=== PATIENT | male | born 1995 | race Caucasian/White ===

== ENCOUNTER 2022-11-12 17:54 | Emergency (ER) | payer OTHER, SELFPAY ==
--- NOTE | ~2022-11-12 | XR_ITS ---
EXAMINATION: XR chest 2V DATE: 11/12/2022 23:33 INDICATION: Dysphagia. TECHNIQUE: Frontal and lateral views of the chest were obtained. COMPARISON: None. FINDINGS: The chest demonstrates clear lungs without pneumonia, pleural effusion, or pneumothorax. Th e heart size is normal. IMPRESSION: 1. No acute cardiopulmonary disease. Reviewed, dictated and finalized at location A. [facility]
[2022-11-12 18:36] VITALS: BP 153/87; PULSE 110; RESP 18; TEMP 37; O2SAT 100
--- NOTE | 2022-11-12 23:30 | ED.GENADULT ---
HPI - General Adult General Chief complaint: Neuro Symptoms/Deficit Stated complaint: i feel im choking Time Seen by Provider: 11/12/22 22:49 History of Present Illness HPI narrative: Patient is a 27-year-old male who presents ER with discomfort in his throat. Reports he was eating a [place] pena when it got stuck. He is coughing and retching. Eventually he improved and he is able to drink water. He still has discomfort in his neck. He does not believe that anything went into his airway. Reports he did have a marijuana edible tonight which may have heightened his anxiety because he was quite nervous during the episode. He has not had esophageal obstruction previously. He has not had an EGD. Does not report persistent acid reflux. Reports he had pizza earlier in the day. Related Data Allergies Allergy/AdvReac Type Severity Reaction Status Date / Time No Known Allergies Allergy Verified 11/12/22 18:41 Review of Systems Review of Systems: All systems reviewed & are unremarkable except as noted in HPI and below Constitutional: Constitutional: Denies chills, Denies fatigue and Denies fever(s) ENT: Reports dysphagia, Denies nasal congestion and Denies sore throat Cardiovascular: Cardiovascular: Denies chest pain, Denies rapid heart rate and Denies radiating jaw, neck or arm pain Respiratory: Respiratory: Denies cough and Denies dyspnea Gastrointestinal: Gastrointestinal: Denies abdominal pain, Reports nausea and Reports vomiting PMFSH Past Medical History Medical History (Updated 11/13/22 @ 00:15 by Alfonso Rae MD) Healthy adult male Surgical History Surgical History (Updated 11/12/22 @ 23:35 by Alfonso Rae MD) No history of previous surgery Social History Social History (Updated 11/12/22 @ 23:35 by Alfonso Rae MD) Substance use type: marijuana Exam Narrative: GENERAL: Well-appearing, well-nourished, and in no acute distress. HEAD: Normocephalic, atraumatic. CHEST: Clear to auscultation. No respiratory distress. HEART: Regular rate and rhythm. Normal peripheral pulses. EXTREMITIES: Normal range of motion. No edema. NEURO: Alert and oriented x3. PSYCH: Normal mood and affect. Course Course Emergency Course: Viscous lidocaine improve discomfort. Suspect irritation to esophagus that will heal on its own. Normal chest x-ray. Discharge. Vital Signs Vital signs: Vital Signs Temperature 98.6 F 11/12/22 18:36 Pulse Rate 110 H 11/12/22 18:36 Respiratory Rate 18 11/12/22 18:36 Blood Pressure 153/87 H 11/12/22 18:36 Pulse Oximetry 100 11/12/22 18:36 Oxygen Delivery Room Air 11/12/22 18:36 Temperature 98.6 F 11/12/22 18:36 Pulse Rate 110 H 11/12/22 18:36 Respiratory Rate 18 11/12/22 18:36 Blood Pressure 153/87 H 11/12/22 18:36 Pulse Oximetry 100 11/12/22 18:36 Oxygen Delivery Room Air 11/12/22 18:36 Medical Decision Making Vital Signs Vital Signs: Vital Signs Temperature 98.6 F 11/12/22 18:36 Pulse Rate 110 H 11/12/22 18:36 Respiratory Rate 18 11/12/22 18:36 Blood Pressure 153/87 H 11/12/22 18:36 Pulse Oximetry 100 11/12/22 18:36 Oxygen Delivery Room Air 11/12/22 18:36 Temperature 98.6 F 11/12/22 18:36 Pulse Rate 110 H 11/12/22 18:36 Respiratory Rate 18 11/12/22 18:36 Blood Pressure 153/87 H 11/12/22 18:36 Pulse Oximetry 100 11/12/22 18:36 Oxygen Delivery Room Air 11/12/22 18:36 Imaging Data My impression: Chest x-ray: No acute cardiopulmonary process. Discharge Plan Discharge Clinical Impression: Esophageal abrasion Patient Disposition: Home, Self-Care Condition: Stable Additional Instructions: It is felt that you scratched your esophagus while having some food stuck in your throat. This is causing some discomfort that will heal over the next couple days. Make sure you chew your food well and drink water with it so goes down easily. He may have had a briefly o
[2022-11-12] MEDS: LIDOCAINE HCL 2% VISC SOLN 15 ML UDC PO (23:37)
[2022-11-13] VITALS: BP 120/60; PULSE 92; RESP 18; O2SAT 99
[2022-11-13 00:58] VITALS: BP 126/66; PULSE 97; RESP 18; O2SAT 99
== END 2022-11-13 01:00 | disposition home or self-care (01) ==
PROVIDERS: Emergency Provider Emergency Medicine
DX: S27.818A Other injury of esophagus (thoracic part), initial encounter (principal); X58.XXXA Exposure to other specified factors, initial encounter
CPT/HCPCS: 71046; 99283